=== PATIENT | male | born 1945 | race Two or more races ===

== ENCOUNTER 2020-12-07 09:06 | Inpatient (IN) | payer OTHER ==
[2020-12-07] MEDS ORDERED: SODIUM CHLORIDE 2,068 ML IV ONE (09:37)
[2020-12-07] MEDS ORDERED: ACETAMINOPHEN 1000 MG/100 ML VIAL (NON FORMULARY) IVPB ONE (11:08)
[2020-12-07 11:37] LABS: BASO % 0.1 % (0-2.0); HEMATOCRIT 32.8 % (35.4-49); HEMOGLOBIN 10.6 GM/dL (11.7-16.9); LYMPH % 9.3 % (8-40); MCH 28.6 pg (25.7-33.7); MCHC 32.3 g/dl (32.0-35.9); MEAN CELL VOLUME 88.4 fl (80-96); MEAN PLT VOLUME 7.7 fl (7.5-11.1); NEUT % 87.6 % (42.8-82.8); PLATELET COUNT 402 10^3/uL (134-434); RBC 3.71 M/mm3 (4.00-5.60); RDW 16.5 % (11.9-15.9); WHITE BLOOD COUNT 16.4 K/mm3 (4.0-10.0)
[2020-12-07 11:45] LABS: INR 1.4 (0.83-1.09); PROTHROMBIN TIME (PATIENT) 17.1 SEC (9.7-13.0)
[2020-12-07 11:48] LABS: ACTIVATED PTT 31.5 SECONDS (25.2-36.5)
[2020-12-07 11:53] LABS: LACTIC ACID 2.6 mmol/L (0.4-2.0)
[2020-12-07 11:56] LABS: CHLORIDE 100 mmol/L (98-107); SODIUM 133 mmol/L (136-145)
[2020-12-07 11:57] LABS: ALBUMIN 3.4 g/dl (3.4-5.0); ANION GAP 14 MMOL/L (8-16); BLOOD UREA NITROGEN 31.9 mg/dL (7-18); CALCIUM 8.3 mg/dL (8.5-10.1); CO2 19 mmol/L (21-32); GLUCOSE,RANDOM 127 mg/dL (74-106)
[2020-12-07 12:00] LABS: SGPT/ALT 28 U/L (13-61)
[2020-12-07 12:02] LABS: BILIRUBIN,TOTAL 0.6 mg/dL (0.2-1); SGOT/AST 24 U/L (15-37); TOT PROT 8.3 g/dl (6.4-8.2)
[2020-12-07 12:04] LABS: ALK PHOS 140 U/L (45-117)
[2020-12-07 12:10] LABS: CREATININE 2.7 mg/dL (0.55-1.3)
[2020-12-07] MEDS ORDERED: SODIUM CHLORIDE 1,000 ML IV SCH ×2 (14:15→17:06)
[2020-12-07] MEDS ORDERED: ACETAMINOPHEN 1000 MG/100 ML VIAL (NON FORMULARY) IVPB PRN (17:51)
[2020-12-07] MEDS ORDERED: ALBUTEROL SO4 0.083% IH SOL 2.5 MG/3 ML VIAL.NEB. NEB PRN (17:57)
[2020-12-07] MEDS ORDERED: PIPERACILLIN/TAZOB 3.375 GM 3.375 GM/50 ML BAG IVPB ONE (18:34)
[2020-12-07] MEDS: VANCOMYCIN 250 MG/5 ML ORAL SOLUTION PO SCH (18:44)
[2020-12-07] MEDS: PIPERACILLIN/TAZOB 3.375 GM 3.375 GM in DEXTROSE 5%-WATER - 50 ML IVPB SCH (18:45)
[2020-12-07] MEDS: INSULIN SLIDING SCALE (NOVOLOG) 1 VIAL SQ SCH ×2 (19:01→22:30)
[2020-12-07] MEDS ORDERED: HEPARIN NA (PORCINE) 5,000 UNITS/ML 1ML VIAL ONE (22:12)
[2020-12-07] MEDS: HEPARIN NA (PORCINE) 5,000 UNITS/ML 1ML VIAL SQ SCH (22:14)
[2020-12-07] MEDS: SODIUM BICARBONATE 650 MG TABLET PO SCH (23:10)
[2020-12-08] MEDS: VANCOMYCIN 250 MG/5 ML ORAL SOLUTION PO SCH ×5 (02:15→18:54)
[2020-12-08] MEDS ORDERED: PIPERACILLIN/TAZOB 3.375 GM 3.375 GM/50 ML BAG IVPB ONE (02:46)
[2020-12-08] MEDS: PIPERACILLIN/TAZOB 3.375 GM 3.375 GM in DEXTROSE 5%-WATER - 50 ML IVPB SCH ×2 (02:47→23:07)
[2020-12-08] MEDS ORDERED: ACETAMINOPHEN INJECTION 100 ML IVPB ONE (04:17)
[2020-12-08] MEDS: HEPARIN NA (PORCINE) 5,000 UNITS/ML 1ML VIAL SQ SCH ×3 (06:23→21:25)
[2020-12-08] MEDS ORDERED: PT OWN MED DRAWER 7, Y5N ONE (07:21)
[2020-12-08] MEDS: INSULIN SLIDING SCALE (NOVOLOG) 1 VIAL SQ SCH ×4 (08:15→21:25)
[2020-12-08] MEDS: CALCIUM ACETATE 667 MG CAPSULE (FP) PO SCH ×3 (08:32→17:22)
[2020-12-08] MEDS: ALLOPURINOL 100 MG TABLET (FP) PO SCH (11:00)
[2020-12-08] MEDS: SODIUM BICARBONATE 650 MG TABLET PO SCH ×2 (11:00→21:26)
[2020-12-08] MEDS ORDERED: GABAPENTIN 100 MG CAPSULE ONE (11:00)
[2020-12-08] MEDS: GABAPENTIN 100 MG CAPSULE PO SCH (11:00)
[2020-12-08] MEDS: NIFEdipine E.R 60 MG TABLET PO SCH (11:00)
[2020-12-08 13:38] LABS: BASO % 0.4 % (0-2.0); EOS % 1.8 % (0-4.5); HEMATOCRIT 30.5 % (35.4-49); LYMPH % 12.8 % (8-40); MCH 28.9 pg (25.7-33.7); MCHC 32.8 g/dl (32.0-35.9); MEAN CELL VOLUME 88.1 fl (80-96); MEAN PLT VOLUME 7.5 fl (7.5-11.1); MONO % 6.8 % (3.8-10.2); NEUT % 78.2 % (42.8-82.8); PLATELET COUNT 319 10^3/uL (134-434); RBC 3.46 M/mm3 (4.00-5.60); RDW 16.5 % (11.9-15.9)
[2020-12-08 14:00] LABS: BLOOD UREA NITROGEN 37.3 mg/dL (7-18); CALCIUM 8.6 mg/dL (8.5-10.1)
[2020-12-08 14:01] LABS: ALBUMIN 3.1 g/dl (3.4-5.0); MAGNESIUM 2.1 mg/dL (1.8-2.4)
[2020-12-08 14:04] LABS: CREATININE 2.2 mg/dL (0.55-1.3); PHOSPHOROUS 4.3 mg/dL (2.5-4.9)
[2020-12-08 14:05] LABS: BILIRUBIN,TOTAL 0.4 mg/dL (0.2-1); TOT PROT 7.7 g/dl (6.4-8.2)
[2020-12-08 14:41] LABS: ANISOCYTOSIS 1+; MACROCYTOSIS 0; PLATELET ESTIMATE NORMAL; TOXIC GRANULATION 2+
[2020-12-08] MEDS ORDERED: HEPARIN NA (PORCINE) 5,000 UNITS/ML 1ML VIAL ONE ×2 (15:00→21:17)
[2020-12-08] MEDS ORDERED: POTASSIUM CHLORIDE TABS 10 MEQ TABLET.ER (FP) PO ONE (15:12)
[2020-12-08] MEDS ORDERED: POTASSIUM CHLORIDE TABS 10 MEQ TABLET.ER (FP) ONE (15:36)
[2020-12-08] MEDS ORDERED: SODIUM CHLORIDE 0.45% 1,000 ML IV SCH (16:30)
[2020-12-08] MEDS ORDERED: POTASSIUM CHLORIDE TABS 20 MEQ TABLET.ER (FP) PO ONE ×2 (16:55→17:00)
[2020-12-08] MEDS: LACTOBACILLUS ACIDOPHILUS 1 TABLET PO SCH (17:22)
[2020-12-09] MEDS: VANCOMYCIN 250 MG/5 ML ORAL SOLUTION PO SCH ×4 (01:32→18:46)
[2020-12-09] MEDS: HEPARIN NA (PORCINE) 5,000 UNITS/ML 1ML VIAL SQ SCH (05:53)
[2020-12-09] MEDS: INSULIN SLIDING SCALE (NOVOLOG) 1 VIAL SQ SCH ×4 (06:07→22:01)
[2020-12-09] MEDS: CALCIUM ACETATE 667 MG CAPSULE (FP) PO SCH ×3 (07:45→17:46)
[2020-12-09 08:09] LABS: BASO % 0.2 % (0-2.0); EOS % 2.6 % (0-4.5); HEMATOCRIT 27.2 % (35.4-49); HEMOGLOBIN 8.9 GM/dL (11.7-16.9); LYMPH % 17.4 % (8-40); MCH 28.9 pg (25.7-33.7); MCHC 32.9 g/dl (32.0-35.9); MEAN CELL VOLUME 87.8 fl (80-96); MEAN PLT VOLUME 7.8 fl (7.5-11.1); MONO % 7.5 % (3.8-10.2); NEUT % 72.3 % (42.8-82.8); PLATELET COUNT 304 10^3/uL (134-434); RBC 3.09 M/mm3 (4.00-5.60); RDW 16.1 % (11.9-15.9); WHITE BLOOD COUNT 10.5 K/mm3 (4.0-10.0)
[2020-12-09 08:22] LABS: ALBUMIN 2.6 g/dl (3.4-5.0); BLOOD UREA NITROGEN 26.4 mg/dL (7-18); CALCIUM 7.9 mg/dL (8.5-10.1); MAGNESIUM 1.8 mg/dL (1.8-2.4)
[2020-12-09 08:25] LABS: CREATININE 1.6 mg/dL (0.55-1.3)
[2020-12-09 08:27] LABS: BILIRUBIN,TOTAL 0.3 mg/dL (0.2-1); TOT PROT 6.7 g/dl (6.4-8.2)
[2020-12-09] MEDS ORDERED: MAGNESIUM SULF 50% (8.12 MEQ/2 ML-1 GM VIAL) IVPB ONE (08:30)
[2020-12-09] MEDS ORDERED: POTASSIUM CHLORIDE TABS 20 MEQ TABLET.ER (FP) PO ONE (08:30)
[2020-12-09] MEDS: LACTOBACILLUS ACIDOPHILUS 1 TABLET PO SCH (09:45)
[2020-12-09] MEDS: GABAPENTIN 100 MG CAPSULE PO SCH (09:45)
[2020-12-09] MEDS: SODIUM BICARBONATE 650 MG TABLET PO SCH ×2 (09:45→21:55)
[2020-12-09] MEDS: NIFEdipine E.R 60 MG TABLET PO SCH (09:45)
[2020-12-09] MEDS: ALLOPURINOL 100 MG TABLET (FP) PO SCH (09:45)
[2020-12-09 11:04] LABS: RETICULOCYTES 1.69 % (0.5-1.5)
[2020-12-09] MEDS ORDERED: CALCIUM ACETATE 667 MG CAPSULE (FP) PO SCH (13:03)
[2020-12-09] MEDS ORDERED: ALBUTEROL SO4 0.083% IH SOL 2.5 MG/3 ML VIAL.NEB. NEB PRN (14:48)
[2020-12-09] MEDS ORDERED: SODIUM CHLORIDE 0.45% 1,000 ML IV SCH (14:48)
[2020-12-10] MEDS: VANCOMYCIN 250 MG/5 ML ORAL SOLUTION PO SCH ×5 (00:11→23:30)
[2020-12-10] MEDS: INSULIN SLIDING SCALE (NOVOLOG) 1 VIAL SQ SCH ×4 (06:24→21:03)
[2020-12-10 08:13] LABS: HEMATOCRIT 27.7 % (35.4-49); HEMOGLOBIN 9.2 GM/dL (11.7-16.9); MCH 29.1 pg (25.7-33.7); MCHC 33.3 g/dl (32.0-35.9); MEAN CELL VOLUME 87.5 fl (80-96); MEAN PLT VOLUME 7.4 fl (7.5-11.1); PLATELET COUNT 291 10^3/uL (134-434); RBC 3.17 M/mm3 (4.00-5.60); RDW 16.1 % (11.9-15.9); WHITE BLOOD COUNT 6.9 K/mm3 (4.0-10.0)
[2020-12-10 08:40] LABS: CALCIUM 8.1 mg/dL (8.5-10.1)
[2020-12-10 08:41] LABS: MAGNESIUM 1.9 mg/dL (1.8-2.4)
[2020-12-10 08:42] LABS: ALBUMIN 2.8 g/dl (3.4-5.0)
[2020-12-10 08:44] LABS: BLOOD UREA NITROGEN 23.3 mg/dL (7-18); CREATININE 1.4 mg/dL (0.55-1.3)
[2020-12-10 08:45] LABS: BILIRUBIN,TOTAL 0.2 mg/dL (0.2-1); TOT PROT 6.9 g/dl (6.4-8.2)
[2020-12-10 08:47] LABS: PHOSPHOROUS 3.2 mg/dL (2.5-4.9)
[2020-12-10] MEDS: SODIUM BICARBONATE 650 MG TABLET PO SCH ×2 (10:18→21:01)
[2020-12-10] MEDS: CALCIUM ACETATE 667 MG CAPSULE (FP) PO SCH ×2 (10:18→12:19)
[2020-12-10] MEDS: NIFEdipine E.R 60 MG TABLET PO SCH (10:18)
[2020-12-10] MEDS: GABAPENTIN 100 MG CAPSULE PO SCH (10:18)
[2020-12-10] MEDS: LACTOBACILLUS ACIDOPHILUS 1 TABLET PO SCH (10:19)
[2020-12-10] MEDS: ALLOPURINOL 100 MG TABLET (FP) PO SCH (10:19)
[2020-12-10] MEDS ORDERED: PT OWN MED DRAWER 7, Y5N ONE (12:17)
[2020-12-10 17:39] VITALS: BMI 23.9
[2020-12-10 18:22] LABS: EPI CELLS 4 /uL (0-25.1); HYALINE CASTS 1 /uL (0-3.1); URINE APPEARANCE CLEAR; URINE BACTERIA 6 /uL (0-1359); URINE BILIRUBIN NEGATIVE (NEGATIVE); URINE COLOR YELLOW; URINE GLUCOSE (UA) NEGATIVE (NEGATIVE); URINE KETONE NEGATIVE (NEGATIVE); URINE LEUK ESTERASE TRACE (NEGATIVE); URINE NITRITE NEGATIVE (NEGATIVE); URINE PROTEIN 1+ (NEGATIVE); URINE RBC 6 /uL (0-23.9); URINE UROBILINOGEN 0.2 mg/dL (0.2-1.0); URINE WBC 8 /uL (0-25.8)
[2020-12-11] MEDS: VANCOMYCIN 250 MG/5 ML ORAL SOLUTION PO SCH ×4 (05:37→23:35)
[2020-12-11] MEDS: INSULIN SLIDING SCALE (NOVOLOG) 1 VIAL SQ SCH ×4 (06:03→21:05)
[2020-12-11] MEDS: AMINO ACIDS/PROTEIN HYDROLYS 30 ML LIQUID.PKT PO SCH ×2 (08:47→17:03)
[2020-12-11] MEDS: LACTOBACILLUS ACIDOPHILUS 1 TABLET PO SCH (09:08)
[2020-12-11] MEDS: ALLOPURINOL 100 MG TABLET (FP) PO SCH (09:09)
[2020-12-11] MEDS: SODIUM BICARBONATE 650 MG TABLET PO SCH ×2 (09:09→20:59)
[2020-12-11] MEDS: GABAPENTIN 100 MG CAPSULE PO SCH (09:09)
[2020-12-11] MEDS: NIFEdipine E.R 60 MG TABLET PO SCH (09:09)
[2020-12-11 09:26] LABS: BASO % 1.5 % (0-2.0); EOS % 6.8 % (0-4.5); HEMATOCRIT 29.7 % (35.4-49); HEMOGLOBIN 9.6 GM/dL (11.7-16.9); MCH 28.4 pg (25.7-33.7); MCHC 32.3 g/dl (32.0-35.9); MEAN CELL VOLUME 87.9 fl (80-96); MEAN PLT VOLUME 7.8 fl (7.5-11.1); NEUT % 47.7 % (42.8-82.8); PLATELET COUNT 298 10^3/uL (134-434); RBC 3.38 M/mm3 (4.00-5.60); RDW 16.5 % (11.9-15.9); WHITE BLOOD COUNT 6.1 K/mm3 (4.0-10.0)
[2020-12-11 09:33] LABS: BLOOD UREA NITROGEN 19.7 mg/dL (7-18); CALCIUM 8.2 mg/dL (8.5-10.1)
[2020-12-11 09:36] LABS: CREATININE 1.1 mg/dL (0.55-1.3)
[2020-12-12] MEDS: VANCOMYCIN 250 MG/5 ML ORAL SOLUTION PO SCH ×3 (06:11→17:38)
[2020-12-12] MEDS: INSULIN SLIDING SCALE (NOVOLOG) 1 VIAL SQ SCH ×4 (06:14→21:33)
[2020-12-12] MEDS: AMINO ACIDS/PROTEIN HYDROLYS 30 ML LIQUID.PKT PO SCH ×2 (08:48→17:38)
[2020-12-12] MEDS: NIFEdipine E.R 60 MG TABLET PO SCH (10:13)
[2020-12-12] MEDS: SODIUM BICARBONATE 650 MG TABLET PO SCH ×2 (10:13→21:33)
[2020-12-12] MEDS: LACTOBACILLUS ACIDOPHILUS 1 TABLET PO SCH (10:13)
[2020-12-12] MEDS: ALLOPURINOL 100 MG TABLET (FP) PO SCH (10:13)
[2020-12-12] MEDS: GABAPENTIN 100 MG CAPSULE PO SCH (10:13)
[2020-12-13] MEDS: VANCOMYCIN 250 MG/5 ML ORAL SOLUTION PO SCH ×4 (01:17→17:39)
[2020-12-13] MEDS: INSULIN SLIDING SCALE (NOVOLOG) 1 VIAL SQ SCH ×4 (07:17→21:12)
[2020-12-13 08:04] LABS: HEMOGLOBIN 10.3 GM/dL (11.7-16.9); MCH 28.3 pg (25.7-33.7); MCHC 32.3 g/dl (32.0-35.9); MEAN CELL VOLUME 87.5 fl (80-96); MEAN PLT VOLUME 7.5 fl (7.5-11.1); PLATELET COUNT 291 10^3/uL (134-434); RBC 3.65 M/mm3 (4.00-5.60); RDW 16.3 % (11.9-15.9); WHITE BLOOD COUNT 7.1 K/mm3 (4.0-10.0)
[2020-12-13] MEDS: AMINO ACIDS/PROTEIN HYDROLYS 30 ML LIQUID.PKT PO SCH ×2 (08:17→17:39)
[2020-12-13 08:21] LABS: CALCIUM 7.8 mg/dL (8.5-10.1)
[2020-12-13 08:22] LABS: ALBUMIN 2.9 g/dl (3.4-5.0); BLOOD UREA NITROGEN 21.4 mg/dL (7-18)
[2020-12-13 08:24] LABS: BILIRUBIN,TOTAL 0.2 mg/dL (0.2-1); TOT PROT 6.6 g/dl (6.4-8.2)
[2020-12-13] MEDS: GABAPENTIN 100 MG CAPSULE PO SCH (09:46)
[2020-12-13] MEDS: LACTOBACILLUS ACIDOPHILUS 1 TABLET PO SCH (09:46)
[2020-12-13] MEDS: SODIUM BICARBONATE 650 MG TABLET PO SCH (09:46)
[2020-12-13] MEDS: ALLOPURINOL 100 MG TABLET (FP) PO SCH (09:46)
[2020-12-13] MEDS: NIFEdipine E.R 60 MG TABLET PO SCH (09:46)
[2020-12-13] MEDS ORDERED: LIDOCAINE HCL/PF 2% SDV 5ML VIAL SQ ONE (13:00)
[2020-12-13] MEDS ORDERED: PT OWN MED DRAWER 7, Y5N ONE ×2 (13:30→15:17)
[2020-12-13] MEDS ORDERED: ACETAMINOPHEN 325 MG TABLET (FP) PO PRN (15:46)
[2020-12-13] MEDS ORDERED: INSULIN (NOVOLOG) ASPART 100 UNITS/ML 10ML VIAL ONE (21:11)
[2020-12-14] MEDS: VANCOMYCIN 250 MG/5 ML ORAL SOLUTION PO SCH ×3 (00:09→12:16)
[2020-12-14] MEDS: INSULIN SLIDING SCALE (NOVOLOG) 1 VIAL SQ SCH ×3 (06:38→16:54)
[2020-12-14 08:30] LABS: HEMATOCRIT 34.3 % (35.4-49); HEMOGLOBIN 11.1 GM/dL (11.7-16.9); MCH 28.3 pg (25.7-33.7); MCHC 32.5 g/dl (32.0-35.9); MEAN CELL VOLUME 87.2 fl (80-96); MEAN PLT VOLUME 7.2 fl (7.5-11.1); PLATELET COUNT 296 10^3/uL (134-434); RBC 3.94 M/mm3 (4.00-5.60); RDW 16.6 % (11.9-15.9); WHITE BLOOD COUNT 6.9 K/mm3 (4.0-10.0)
[2020-12-14] MEDS: AMINO ACIDS/PROTEIN HYDROLYS 30 ML LIQUID.PKT PO SCH ×2 (08:40→08:42)
[2020-12-14 09:00] LABS: BLOOD UREA NITROGEN 21.2 mg/dL (7-18); CALCIUM 7.9 mg/dL (8.5-10.1)
[2020-12-14 09:01] LABS: MAGNESIUM 1.7 mg/dL (1.8-2.4)
[2020-12-14 09:04] LABS: PHOSPHOROUS 4.1 mg/dL (2.5-4.9)
[2020-12-14 09:05] LABS: BILIRUBIN,TOTAL 0.2 mg/dL (0.2-1); TOT PROT 6.8 g/dl (6.4-8.2)
[2020-12-14] MEDS ORDERED: PT OWN MED DRAWER 7, Y5N ONE ×2 (09:30→13:20)
[2020-12-14] MEDS: LACTOBACILLUS ACIDOPHILUS 1 TABLET PO SCH (09:38)
[2020-12-14] MEDS: ALLOPURINOL 100 MG TABLET (FP) PO SCH (09:38)
[2020-12-14] MEDS: NIFEdipine E.R 60 MG TABLET PO SCH (09:38)
[2020-12-14] MEDS: GABAPENTIN 100 MG CAPSULE PO SCH (09:38)
[2020-12-14] MEDS ORDERED: SODIUM BICARBONATE 325 MG TABLET PO SCH (10:00)
[2020-12-14] MEDS ORDERED: ENOXAPARIN NA (PORCINE) 40 MG/0.4 ML DISP.SYRIN SQ SCH (10:00)
[2020-12-14 10:50] LABS: URIC ACID 5.7 mg/dL (2.6-7.2)
[2020-12-14] MEDS ORDERED: metroNIDAZOLE 250 MG TABLET PO SCH (14:00)
[2020-12-14] MEDS ORDERED: BANATROL PLUS POWDER PACKET PO SCH (14:00)
[2020-12-14 14:23] VITALS: BP 131/65; PULSE 87; TEMP 98.4
[2020-12-14] MEDS ORDERED: MAGNESIUM OXIDE 400 MG TABLET (FP) PO ONE (16:25)
[2020-12-14] MEDS ORDERED: POTASSIUM CHLORIDE TABS 20 MEQ TABLET.ER (FP) PO ONE (16:25)
[2020-12-15 16:17] LABS: HEP B CORE AB, TOT Negative (Negative)
== END 2020-12-14 17:41 | disposition home or self-care (01) | DRG 371 ==
LOC: JER 09:06 → JERBED 13:30 → J4W 12-08 22:50 → J8W 12-09 14:09
PROVIDERS: ATTEND Internal Medicine
PROC: 05PYX3Z Removal of Infusion Device from Upper Vein, External Approach (ICD-10-PCS; principal; 2020-12-13)
DX: A04.72 Enterocolitis due to Clostridium difficile, not specified as recurrent (principal); A41.89 Other specified sepsis; N18.6 End stage renal disease; N17.9 Acute kidney failure, unspecified; E87.2 Acidosis; I12.0 Hypertensive chronic kidney disease with stage 5 chronic kidney disease or end stage renal disease; E87.1 Hypo-osmolality and hyponatremia; R50.9 Fever, unspecified; E78.5 Hyperlipidemia, unspecified; I49.3 Ventricular premature depolarization; D72.829 Elevated white blood cell count, unspecified; N45.3 Epididymo-orchitis; J45.909 Unspecified asthma, uncomplicated; E11.22 Type 2 diabetes mellitus with diabetic chronic kidney disease; R47.81 Slurred speech; F32.9 Major depressive disorder, single episode, unspecified; N50.89 Other specified disorders of the male genital organs; N45.1 Epididymitis; D64.9 Anemia, unspecified; Z99.2 Dependence on renal dialysis
CPT/HCPCS: 36415; 71045-TC-FY; 74018-TC-FY; 74176-TC; 76870-TC; 80048; 80053; 81003; 82962; 83036; 83605; 83615; 83735; 84100; 84484; 84550; 85025; 85027; 85045; 85610; 85730; 86704; 86706; 86707; 86708; 86709; 86769; 87040; 87077; 87086; 87324; 87340; 87449; 87522; 93005; 93010; 97116-GP; 97161-GP; 99285-25; C9803; J0131; J1644; U0003; U0005

== ENCOUNTER 2021-02-11 15:13 | Emergency (ER) | payer OTHER ==
[2021-02-11 15:42] VITALS: BP 122/81; PULSE 110; TEMP 98.1; BMI 24.4
[2021-02-11] MEDS ORDERED: LIDOCAINE 5% TOPICAL PATCH TP ONE (18:02)
[2021-02-11] MEDS ORDERED: ACETAMINOPHEN 1000 MG/100 ML VIAL (NON FORMULARY) IVPB ONE (18:02)
[2021-02-11] MEDS ORDERED: ACETAMINOPHEN INJECTION 100 ML IVPB ONE (18:26)
[2021-02-11] MEDS ORDERED: LIDOCAINE 5% TOPICAL PATCH ONE (18:27)
[2021-02-11 18:54] LABS: EOS % 9.8 % (0-4.5); HEMATOCRIT 35.1 % (35.4-49); HEMOGLOBIN 11.9 GM/dL (11.7-16.9); LYMPH % 36.8 % (8-40); MCH 29.8 pg (25.7-33.7); MCHC 33.8 g/dl (32.0-35.9); MEAN CELL VOLUME 88.1 fl (80-96); MEAN PLT VOLUME 7.7 fl (7.5-11.1); MONO % 8.2 % (3.8-10.2); NEUT % 44.2 % (42.8-82.8); PLATELET COUNT 181 10^3/uL (134-434); RBC 3.99 M/mm3 (4.00-5.60); RDW 17.4 % (11.9-15.9); WHITE BLOOD COUNT 6.5 K/mm3 (4.0-10.0)
[2021-02-11 19:11] LABS: CHLORIDE 109 mmol/L (98-107); SODIUM 139 mmol/L (136-145)
[2021-02-11 19:13] LABS: CALCIUM 8.6 mg/dL (8.5-10.1)
[2021-02-11 19:14] LABS: ALBUMIN 3.8 g/dl (3.4-5.0); ANION GAP 7 MMOL/L (8-16); BLOOD UREA NITROGEN 22.4 mg/dL (7-18); CO2 23 mmol/L (21-32); GLUCOSE,RANDOM 110 mg/dL (74-106)
[2021-02-11 19:17] LABS: CREATININE 1.3 mg/dL (0.55-1.3); SGOT/AST 30 U/L (15-37); SGPT/ALT 25 U/L (13-61)
[2021-02-11 19:19] LABS: BILIRUBIN,TOTAL 0.3 mg/dL (0.2-1)
[2021-02-11 19:20] LABS: ALK PHOS 82 U/L (45-117)
[2021-02-11] MEDS ORDERED: LIDOCAINE PATCH REMOVAL MC SCH (22:00)
== END 2021-02-11 21:55 ==
LOC: JER 15:13
PROC: 3E033NZ Introduction of Analgesics, Hypnotics, Sedatives into Peripheral Vein, Percutaneous Approach (ICD-10-PCS; principal; 2021-02-11)
DX: R07.9 Chest pain, unspecified (principal)
CPT/HCPCS: 36415; 71250-TC; 80053; 82550; 84484; 85025; 85379; 93005; 93010; 96374; 99285-25; J0131